=== PATIENT | male | born 1940 | race Caucasian/White ===

== ENCOUNTER 2016-06-20 18:38 | Inpatient (IN) | payer MEDICARE, OTHER ==
--- NOTE | ~2016-06-20 | EKG ---
PATIENT: SAGRARIO NATHAN UNIT #: [id number] Ventricular Rate: 60 BPM Atrial Rate: 227 BPM QRS Duration: 176 ms Q-T Interval: 470 ms QTC Calculation(Bezet): 470 ms Calculated R [place]: 5 degrees Calculated T [place]: 120 degrees Diagnosis Line: Atrial flutter Diagnosis Line: Ventricular-paced rhythm Diagnosis Line: Abnormal ECG Diagnosis Line: When compared with ECG of 03-NOV-2014 19:41, Diagnosis Line: Electronic ventricular pacemaker has replaced Diagnosis Line: Atrial flutter Diagnosis Line: Confirmed by EMA PLASENCIA MD ([id number]) on 06/21/2016 Diagnosis Line: 9:19:05 PM INTERPRETING MD: LUIS ANGEL QUIROZ
--- NOTE | ~2016-06-20 | DS ---
Unit #: [id number] #: [id number] Patient: SAGRARIO NATHAN [id number] [address] [address] [id number] I MR#: [id number] NAME: SAGRARIO NATHAN. ROOM: 342 Age: 76 Sex: M Admission Date: 06/20/2016 : 1940 Discharge Date: 06/23/2016 Attending Physician: Rama Barba M.D. Primary Care Physician: Brandyn Angela M.D. DISCHARGE SUMMARY DISCHARGE DIAGNOSES 1. Acute on chronic systolic/diastolic heart failure. 2. A 2-D echocardiogram, 06/21/2016, shows an ejection fraction of 30% with grade 3 diastolic dysfunction with restrictive physiology. There is moderate generalized hypokinesis of the left ventricle. Mild tricuspid regurgitation with right ventricular systolic pressure of less than 30 mmHg. 3. Persistent atrial flutter. 4. Sick sinus syndrome status post permanent pacemaker in 2009. 5. History of coronary artery disease with percutaneous coronary intervention and stent to the circumflex artery, patent 10/30/2014. 6. Hypertension. 7. Hyperlipidemia. 8. Diabetes mellitus type 2. 9. Chronic obstructive pulmonary disease. 10. Dementia. 11. Anemia. 12. Subtherapeutic International Normalized Ratio. DISCHARGE MEDICATIONS 1. Warfarin 5 mg Sunday thru Sunday and 10 mg on Sunday and Sunday. 2. Lexapro 10 mg q.h.s. 3. Metformin 1,000 mg b.i.d. 4. Metoprolol tartrate 25 mg b.i.d. 5. Aricept 10 mg daily. 6. Furosemide 40 mg daily. 7. Atorvastatin 40 mg q.h.s. 8. Lisinopril 10 mg q.h.s. 9. Proscar 5 mg daily. 10. Nexium 40 mg daily. 11. Potassium chloride 20 mEq daily. HOSPITAL COURSE This is a 76-year-old male who was admitted for acute on chronic systolic/diastolic heart failure. He presented with shortness of breath and cough. Saturation levels were 81%. There was elevation of BNP of 218 with chest x-ray noted for pulmonary edema. He was diuresed with IV diuretics. He was started on fluid and sodium restriction. Overnight, oximetry was done. His dyspnea improved. Lasix was transitioned to oral. Telemetry showed atrial flutter. Rate was controlled. He was ruled out for an acute myocardial infarction with negative troponins. INR is subtherapeutic at 1.5 for which he received an increased dose of Coumadin during his stay. Unit #: [id number] #: [id number] Patient: SAGRARIO NATHAN The following day the patient symptomatically improved. He had no recurrence of dyspnea. He was on Tikosyn prior to his admission which was discontinued because the patient has established atrial fibrillation. His heart rate remained stable. He is stable for discharge today. PHYSICAL EXAMINATION VITAL SIGNS: Blood pressure 137/73. Heart rate 71. Temperature 98.1. CHEST: Clear to auscultation. HEART: S1, S2 with no murmurs, rubs or clicks. Irregularly, irregular rhythm. ABDOMEN: Soft, nontender. Good bowel sounds are present. EXTREMITIES: Without leg edema. DIAGNOSTIC STUDIES LABORATORY: Sodium 135, potassium 3.5, BUN 27, creatinine 1.1, glucose 151. TSH 1.24. Cholesterol 98, triglycerides 75, LDL 55, HDL 28. Protime 15.1, INR 1.4. CARDIOVASCULAR: EKG shows ventricularly paced rhythm with atrial flutter, underlying rate of 60 beats per minute. DISCHARGE INSTRUCTIONS 1. The patient will be discharged home today. 2. Followup in three months. The patient's is to call for an appointment. 3. The patient will be discharged home on Furosemide along with a potassium supplement. 4. Coumadin has been increased to 5 mg Sunday through Sunday and 10 mg on Sunday and Sunday. 5. He will need a repeat INR in the office in one week. 6. Tikosyn has been discontinued because the patient is in atrial flutter. 7. No other changes in his medication regimen. Dictated by... Michael Moise A.P.R.N. for Dylon Reid TD: 07/21/2016 09:22 JOB #: [id number] DISCHARGE SUMMARY Page 1 of 1 X Michael Moise APRN X DISCHARGE SUMMARY
--- NOTE | ~2016-06-20 | CR72 ---
[facility] A Service of [facility] & [facility] RADIOLOGY TEXT RESULTS PATIENT: SAGRARIO NATHAN LOCATION: [facility] - : 41 UNIT #: [id number] AGE: [address]: Rama Barba MD SEX: M ORDER DR: [id number] [facility] [address]. [place], [place] [address] [id number] I MR#: [id number] Acc #: [id number] NAME: SAGRARIO NATHAN. : 1940 SEX: M STUDY DATE/TIME: 06/20/2016 18:30 UNIT: [address] ROOM: Critical access hospital STUDY DESCRIPTION: CR Chest Single View Portable Attending Physician: Andie Bolaños M.D. Ordering Physician: Devan Lam M.D. Primary Care Physician: Brandyn Angela M.D. MEDICAL IMAGING REPORT This report is preliminary unless electronic signature is present EXAM Portable AP view of the chest, 06/20/2016 COMPARISON March 29, 2016; November 03, 2014 and October 26, 2014 INDICATION 76-year-old male with dyspnea, cough and wheezing for 3 days. FINDINGS Dual-lead left chest pacemaker device appears stable. There is stable mild cardiomegaly. Stable left apical pleural parenchymal thickening. There is increasing cephalization of pulmonary vasculature with increasing interstitial opacities in both lung bases becoming more confluent in the right lung base suggesting pulmonary edema. Correlation to exclude signs of infection are recommended. No evidence of pneumothorax or pleural effusion. Diffuse mild spondylosis of the thoracic spine. Mild degenerative changes of the acromioclavicular joints. Calcification of the aortic arch. IMPRESSION Increasing bilateral lung opacities favoring pulmonary edema. Stable cardiomegaly. No pleural effusion. Correlation to exclude signs of pneumonia are recommended. Dictated by... Cheng Colón M.D. THIS IS AN ELECTRONICALLY VERIFIED REPORT Cheng Colón M.D. at 06/23/2016 9:37 AM ZULMA/isaac [facility] A Service of [facility] & [facility] RADIOLOGY TEXT RESULTS PATIENT: SAGRARIO NATHAN LOCATION: [place] [id number] : [birth year] UNIT #: [id number] AGE: [address]: Rama Barba MD SEX: M ORDER DR: TD: 06/21/2016 00:07 JOB #: [id number] MEDICAL IMAGING REPORT Page 1 of 1 COPY
--- NOTE | ~2016-06-20 | HP ---
Unit #: [id number] #: [id number] Patient: SAGRARIO BLACKBURN [id number] [facility]. [place], [place] [address] [id number] I MR#: [id number] NAME: SAGRARIO BLACKBURN. ROOM: 342 Age: 76 Sex: M Admission Date: 06/20/2016 : 1940 Attending Physician: Andie Bolaños M.D. Primary Care Physician: Brandyn Angela M.D. HISTORY AND PHYSICAL CHIEF COMPLAINT Dyspnea. HISTORY OF PRESENT ILLNESS Mr. Blackburn is a pleasant 76-year-old seen in room 342 at [facility] with his present. During the day today he underwent an echo which showed TR, for his heart murmur. He was admitted with pulmonary edema to the emergency room, with cough, hypoxemia down to oxygen saturation of 81% and significant shortness of breath that came on within the past 2 days. He has a history of atrial flutter and, upon admission, was in atrial flutter rhythm, with left bundle branch block, and ventricular pacing, left bundle branch block configuration. He continues to be paced with atrial flutter present. Prior cardiac catheterization, by Dr. Barba on 10/25/2014, showed 40% LAD, 30% RCA, ejection fraction 40% to 45%, left ventricular end-diastolic pressure 34 mmHg, circumflex stenting present, and permanent pacemaker implantation. There was moderate pulmonary hypertension with RV systolic pressure of 48 mmHg. He has a history of atrial flutter, type 2 diabetes, respiratory failure with COPD, and pulmonary hypertension. Last admission was 12/17/2014. PAST MEDICAL HISTORY 1. Atrial flutter. 2. Diabetes. 3. COPD with respiratory failure. 4. Coumadin toxicity. 5. EF 40% to 45%. 6. Pulmonary hypertension. 7. Coronary artery disease with circumflex stenting. 8. Cannot rule out sleep disordered breathing. 9. Alzheimer's. PAST SURGICAL HISTORY 1. Back surgery. 2. Pacemaker placement. 3. Carotid surgery. 4. Ablation of atrial flutter, AV node. HOME MEDICATIONS 1. Lisinopril. 2. Metoprolol. 3. Tamsulosin. Unit #: [id number] #: [id number] Patient: SAGRARIO BLACKBURN 4. Finasteride. 5. Metformin. 6. Lasix. 7. Lipitor. 8. Lexapro. 9. Nexium. 10. Warfarin. 11. Namenda. ALLERGIES None. SOCIAL HISTORY Lives with his . FAMILY HISTORY Not obtainable. REVIEW OF SYSTEMS Cannot obtain accurate review of systems due to Alzheimer's. PHYSICAL EXAMINATION VITAL SIGNS: Blood pressure 146/80, heart rate 71 and regular, respiratory rate 20. Height 6 feet 0 inches, weight 198 pounds, BMI 26. Weight is down 2 pounds since yesterday. GENERAL: Pleasant, alert, in no acute distress. SKIN: Warm and dry. No xanthelasma. MUSCULOSKELETAL: No missing digits. Moves easily for evaluation. NEUROLOGICAL: Appropriate mood and affect. Not well oriented to person or place. HEENT: Pupils equal, round and reactive. No oral cyanosis. No icterus. NECK: Carotids clear to auscultation with no carotid bruits. Normal carotid upstroke bilaterally. Thyroid is normal in size and texture without masses or tenderness. CHEST: Clear to auscultation with a few inspiratory and expiratory wheezes. Few rales at the base. CARDIAC: Grade 2/6 aortic outflow murmur and a grade 2/6 mitral regurgitation murmur. Paradoxic S2 split. ABDOMEN: Mildly firm abdomen. No hepatosplenomegaly, masses or tenderness. Normal bowel sounds. No abdominal bruits heard. EXTREMITIES: No clubbing, cyanosis or edema. Excellent posterior tibial and dorsalis pedis pulses. DIAGNOSTIC STUDIES LABORATORY: Creatinine 1.2, glucose 150, potassium 3.7. Hemoglobin 9.5, white blood cell count 8.4, platelet count 330,000. CARDIOVASCULAR: I reviewed the ECG as noted above, paced rhythm with atrial flutter. IMPRESSION 1. [id number] diastolic congestive heart failure with right ventricular component, holding fluid in his abdomen and lungs. Continue diuresis. 2. Permanent pacemaker placement. 3. Carotid surgery. 4. Circumflex stent in the past. 5. Pulmonary hypertension. Unit #: [id number] #: [id number] Patient: SAGRARIO BLACKBURN 6. Ejection fraction 40% to 45% in the past. 7. History of Coumadin toxicity, will monitor here. 8. History of chronic obstructive pulmonary disease with respiratory failure. 9. Type 2 diabetes. 10. History of atrial flutter with ablation. PLAN 1. Continue diuresis at least another day. 2. Check thyroid, lipids, hemoglobin A1c, etc. Dictated by Dylon El/shilpa TD: 06/21/2016 20:24 JOB #: [id number] HISTORY AND PHYSICAL Page 1 of 1 X Koffi Quinones MD X HISTORY AND PHYSICAL
[~2016-06-20 18:38] MED LIST: ARICEPT5 MG PO; ASPIRIN EC81 M1 PO; BYSTOLIC5 MG PO; LANTUS100 U/ML SQ; LASIX PO; LEXAPRO5 MG PO; NEXIUM 24HR20 MG PO; NORVASC10 MG PO; PREDNISONE PO; PROAIR HFA8.5 GM; SYMBICORT INH; TEMAZEPAM7.5 MG PO; TIKOSYN250 MCG PO; ZITHROMAX PO
[2016-06-20 18:49] LABS: BASOPHIL# 0.1 X10e3 (0-0.3); BASOPHIL% 1.3 % (0-2.5); EOSINOPHIL# 0.4 X10e3 (0-0.7); EOSINOPHIL% 4.4 % (0.0-7.0); HEMATOCRIT 30.8 % (38.0-50.0); HEMOGLOBIN 9.5 gm/dL (13.0-16.0); LYMPHOCYTE# 1.1 X10e3 (1.0-3.5); LYMPHOCYTE% 13.3 % (17.0-45.0); MEAN CELL VOLUME 75.2 FL (83-96); MEAN CORPUSCULAR HEMOGLOBIN 23.3 PG (28-34); MEAN CORPUSCULAR HGB CONC 30.9 g/dL (30-36); MONOCYTE# 0.7 X10e3 (0-1.0); MONOCYTE% 8.9 % (3.0-12.0); NEUTROPHIL% 72.1 % (40-75); PLATELET COUNT 330 X10e3 (140-420); RED BLOOD COUNT 4.09 X10e (3.90-5.60); RED CELL DISTRIBUTION WIDTH 18.1 % (11.0-15.5); WHITE BLOOD COUNT 8.4 X10e3 (4.0-10.5)
[2016-06-20 18:53] LABS: DIFF IND NO
[2016-06-20 19:04] LABS: POC - TROPONIN <0.05 ng/mL (<=0.05)
[2016-06-20 19:11] LABS: ALBUMIN SERUM 3.7 g/dL (3.5-5.0); BILIRUBIN, DIRECT 0.2 mg/dL (0.0-0.2); BILIRUBIN,INDIRECT 0.6 mg/dL (0.0-0.9); BILIRUBIN,TOTAL 0.8 mg/dL (0.2-2.0); BUN/CREATININE RATIO 18.33; CALCIUM SERUM 9.2 mg/dL (8.4-10.2); CREATININE SERUM 1.2 mg/dL (0.6-1.4); GLOM FILT RATE Estimated 58.8 mL/min (>60); POTASSIUM 3.7 mmol/L (3.5-5.1); PROTEIN TOTAL SERUM 6.6 g/dL (6.0-8.3)
[2016-06-20 19:13] LABS: INR 2.6; PROTHROMBIN TIME (PATIENT) 28.6 SECONDS (9.6-11.5)
[2016-06-20] MEDS ORDERED: LASIX PO (19:50)
[2016-06-20] MEDS ORDERED: LIPITOR40 MG PO (19:51)
[2016-06-20 20:17] LABS: POC - CKMB <1.0 ng/mL (0.0-7.9); POC - TROPONIN <0.05 ng/mL (<=0.05)
[2016-06-21 07:29] LABS: PROTHROMBIN TIME (PATIENT) 21.6 SECONDS (9.6-11.5)
[2016-06-21 20:43] LABS: CALCIUM SERUM 9.3 mg/dL (8.4-10.2); GLOM FILT RATE Estimated 73.3 mL/min (>60); MAGNESIUM 1.9 mg/dL (1.6-3.0); POTASSIUM 3.9 mmol/L (3.5-5.1)
[2016-06-21 22:33] LABS: URINE APPEARANCE CLEAR; URINE BILIRUBIN NEG (NEG); URINE BLOOD NEG (NEG); URINE COLOR YELLOW; URINE GLUCOSE 500 MG/DL (NEG); URINE KETONE NEG (NEG); URINE LEUKOCYTE ESTERASE NEG (NEG); URINE NITRATE NEG (NEG); URINE PH 5.5 (5-8); URINE PROTEIN NEG (NEG); URINE SPECIFIC GRAVITY 1.023 (1.003-1.035)
[2016-06-21 22:42] LABS: CULTURE INDICATED? NO
[2016-06-22 06:52] LABS: INR 1.5; PROTHROMBIN TIME (PATIENT) 16.1 SECONDS (9.6-11.5)
[2016-06-22 07:18] LABS: BUN/CREATININE RATIO 23.33; CALCIUM SERUM 9.4 mg/dL (8.4-10.2); CREATININE SERUM 0.9 mg/dL (0.6-1.4); GLOM FILT RATE Estimated 83.3 mL/min (>60); MAGNESIUM 1.9 mg/dL (1.6-3.0); POTASSIUM 3.7 mmol/L (3.5-5.1)
[2016-06-23 07:06] LABS: HEMATOCRIT 33.5 % (38.0-50.0); HEMOGLOBIN 10.4 gm/dL (13.0-16.0); MEAN CELL VOLUME 74.4 FL (83-96); MEAN CORPUSCULAR HEMOGLOBIN 23.2 PG (28-34); MEAN CORPUSCULAR HGB CONC 31.1 g/dL (30-36); RED BLOOD COUNT 4.5 X10e (3.90-5.60); RED CELL DISTRIBUTION WIDTH 18.1 % (11.0-15.5); WHITE BLOOD COUNT 12.7 X10e3 (4.0-10.5)
[2016-06-23 07:17] LABS: INR 1.4; PROTHROMBIN TIME (PATIENT) 15.4 SECONDS (9.6-11.5)
[2016-06-23] MEDS ORDERED: COUMADIN10 MG PO (07:41)
[2016-06-23 08:01] LABS: BUN/CREATININE RATIO 24.54; CALCIUM SERUM 9.4 mg/dL (8.4-10.2); CREATININE SERUM 1.1 mg/dL (0.6-1.4); GLOM FILT RATE Estimated 65.3 mL/min (>60); MAGNESIUM 2.1 mg/dL (1.6-3.0); POTASSIUM 3.5 mmol/L (3.5-5.1)
== END 2016-06-23 08:57 | disposition home health service (06) | DRG 292 ==
LOC: CED 18:38 → CEDOF 20:00 → C3A PCU 23:54
PROVIDERS: Emergency Medicine; Internal Medicine Cardiovascular Disease
PROC: B246YZZ Ultrasonography of Right and Left Heart using Other Contrast (ICD-10-PCS; principal; 2016-06-21)
DX: I50.23 Acute on chronic systolic (congestive) heart failure (principal); I48.92 Unspecified atrial flutter; I27.2 Other secondary pulmonary hypertension; G30.9 Alzheimer's disease, unspecified; F02.80 Dementia in other diseases classified elsewhere, unspecified severity, without behavioral disturbance, psychotic disturbance, mood disturbance, and anxiety; J44.9 Chronic obstructive pulmonary disease, unspecified; E11.9 Type 2 diabetes mellitus without complications; E78.5 Hyperlipidemia, unspecified; I25.10 Atherosclerotic heart disease of native coronary artery without angina pectoris; Z95.5 Presence of coronary angioplasty implant and graft; Z95.0 Presence of cardiac pacemaker
CPT/HCPCS: 36415; 71010; 80048; 80061; 80076; 81003; 82553; 83036; 83605; 83735; 83880; 84443; 84484; 85025; 85027; 85610; 87040; 87086; 93005; 93306; 94760; 94762; 99291; J1940

== ENCOUNTER → 2016-07-04 | Outpatient (CLI) | payer MEDICARE, OTHER ==
[~2016-07-04] MED LIST changes: +CENTRUM SILVER1 EACH PO; +COUMADIN10 MG PO; +COUMADIN5 MG PO; +COUMADIN7.5 MG PO; +DOCUSATE SODIU100 MG PO; +FINASTERIDE5 MG PO; +FLOMAX0.4 M1 PO; +FUROSEMIDE40 MG PO; +KCL PO; +KEFLEX500 MG PO; +LASIX20 MG PO; +LEXAPRO20 MG PO; +LIPITOR40 MG PO; +LOPRESSOR PO; +METFORMIN HCL1000 M1 PO; +NAMENDA5 MG PO; +ZESTRIL10 M1 PO
[2016-07-04 14:53] LABS: HEMATOCRIT 32.3 % (38.0-50.0); HEMOGLOBIN 9.9 gm/dL (13.0-16.0); MEAN CELL VOLUME 73.8 FL (83-96); MEAN CORPUSCULAR HEMOGLOBIN 22.7 PG (28-34); MEAN CORPUSCULAR HGB CONC 30.7 g/dL (30-36); MEAN PLATELET VOLUME 7.2 FL (6.5-11.5); RED BLOOD COUNT 4.38 X10e (3.90-5.60); RED CELL DISTRIBUTION WIDTH 17.8 % (11.0-15.5)
[2016-07-04 15:21] LABS: BUN/CREATININE RATIO 20.9; CALCIUM SERUM 9.5 mg/dL (8.4-10.2); CREATININE SERUM 1.1 mg/dL (0.6-1.4); GLOM FILT RATE Estimated 65.3 mL/min (>60); POTASSIUM 4.7 mmol/L (3.5-5.1)
== END | disposition home or self-care (01) ==
LOC: CAMB 13:03
PROVIDERS: Urology
DX: N39.41 Urge incontinence (principal)
CPT/HCPCS: 36415; 80048; 85027

== ENCOUNTER 2016-07-14 06:07 | Observation (INO) | payer MEDICARE, OTHER ==
--- NOTE | ~2016-07-14 | OR ---
Unit #: [id number] #: [id number] Patient: SAGRARIO NATHAN [id number] [address] [place], [place] [address] [id number] I MR#: [id number] NAME: SAGRARIO NATHAN. ROOM: 463 Date of Procedure: 07/14/2016 Admission Date: 07/14/2016 Surgeon: Keith Becker M.D. : 1940 Attending Physician: Keith Becker M.D. Primary Care Physician: Brandyn Angela M.D. OPERATIVE REPORT PREOPERATIVE DIAGNOSIS Bladder outlet obstruction from benign prostatic hypertrophy. POSTOPERATIVE DIAGNOSIS Bladder outlet obstruction from benign prostatic hypertrophy. PROCEDURES PERFORMED Cystoscopy with transurethral resection of prostate. ANESTHESIA General. INDICATIONS FOR PROCEDURE This 76-year-old man has severe lower urinary tract symptoms. Cystoscopically proven bilobar BPH and urodynamically proven severe bladder outlet obstruction as well as detrusor instability and urge incontinence. He presents for the above procedure. DESCRIPTION OF PROCEDURE The patient was given satisfactory general anesthesia and positioned in dorsal lithotomy. The genitalia were prepped and draped. The 21-Lithuanian rigid cystoscope was introduced with a 30-degree lens and video noting again bilobar BPH, orifices well back from the bladder neck and only moderate hypertrophy. He was sounded to 28-Lithuanian and gently dilated to 30 to allow easy placement of the 26-Lithuanian continuous flow resectoscope, which was used unfortunately with a 24 loop as a 26 was not available. The bladder neck was incised at 6 o'clock. Then, the left lobe was taken down proximally to distal. The right lobe was taken down, and limited anterior resection performed. Hemostasis was very straightforward. Final aggressive trimming the capsule at the apex released a number of large prostate calculi. All stones and chips were evacuated from the bladder. Then the rollerball applied circumferentially at the bladder neck mucosa distally at the mucosal edges and at 5 and 7 o'clock. There was some mild venous oozing from the left side that was not readily amenable to fulguration, otherwise hemostasis was complete. A 24-Lithuanian catheter was requested and required a guide, which unfortunately took 10 minutes to locate. Endoscopy was not repeated, but the guide was successful placing the catheter in the bladder, which was aggressively irrigated and finding no clot after inflating the balloon to 30 mL. Returns remained clear and the patient was transported to the recovery room in satisfactory condition. Unit #: [id number] #: [id number] Patient: SAGRARIO NATHAN Dictated by... Dylon Back/dawn TD: 07/15/2016 01:52 JOB #: [id number] OPERATIVE REPORT Page 1 of 1 X Keith Becker MD X PROCEDURE OPERATIVE NOTE
[~2016-07-14 06:07] MED LIST changes: -CENTRUM SILVER1 EACH PO; -COUMADIN5 MG PO; -COUMADIN7.5 MG PO; -DOCUSATE SODIU100 MG PO; -FINASTERIDE5 MG PO; -FLOMAX0.4 M1 PO; -FUROSEMIDE40 MG PO; -KCL PO; -KEFLEX500 MG PO; -LASIX20 MG PO; -LEXAPRO20 MG PO; -LOPRESSOR PO; -METFORMIN HCL1000 M1 PO; -NAMENDA5 MG PO; -ZESTRIL10 M1 PO
[2016-07-14] MEDS ORDERED: LIPITOR40 MG PO (06:32)
[2016-07-14] MEDS ORDERED: FUROSEMIDE40 MG PO (06:32)
[2016-07-14] MEDS ORDERED: LASIX20 MG PO (06:32)
[2016-07-14 06:51] LABS: BASOPHIL% 0.2 % (0-2.5); EOSINOPHIL# 0.4 X10e3 (0-0.7); EOSINOPHIL% 3.4 % (0.0-7.0); HEMATOCRIT 33.1 % (38.0-50.0); HEMOGLOBIN 10.1 gm/dL (13.0-16.0); INR 1.2; LYMPHOCYTE# 1.5 X10e3 (1.0-3.5); LYMPHOCYTE% 12.3 % (17.0-45.0); MEAN CELL VOLUME 73.1 FL (83-96); MEAN CORPUSCULAR HEMOGLOBIN 22.3 PG (28-34); MEAN CORPUSCULAR HGB CONC 30.5 g/dL (30-36); MEAN PLATELET VOLUME 7.3 FL (6.5-11.5); MONOCYTE# 0.9 X10e3 (0-1.0); MONOCYTE% 7.7 % (3.0-12.0); NEUTROPHIL# 9.3 X10e3 (1.5-7.1); NEUTROPHIL% 76.4 % (40-75); PLATELET COUNT 323 X10e3 (140-420); PROTHROMBIN TIME (PATIENT) 12.5 SECONDS (9.6-11.5); RED BLOOD COUNT 4.52 X10e (3.90-5.60); RED CELL DISTRIBUTION WIDTH 17.9 % (11.0-15.5); WHITE BLOOD COUNT 12.1 X10e3 (4.0-10.5)
[2016-07-14 06:54] LABS: DIFF IND NO
[2016-07-14] MEDS ORDERED: KCL PO (07:42)
[2016-07-14] MEDS ORDERED: FLOMAX0.4 M1 PO (13:47)
[2016-07-14] MEDS ORDERED: CENTRUM SILVER1 EACH PO (13:48)
[2016-07-14] MEDS ORDERED: NAMENDA5 MG PO (13:48)
[2016-07-14] MEDS ORDERED: COUMADIN5 MG PO (15:18)
[2016-07-14] MEDS ORDERED: LOPRESSOR PO (15:42)
[2016-07-14] MEDS ORDERED: ZESTRIL10 M1 PO (15:43)
[2016-07-14] MEDS ORDERED: FINASTERIDE5 MG PO (17:11)
[2016-07-14] MEDS ORDERED: METFORMIN HCL1000 M1 PO (17:13)
[2016-07-14] MEDS ORDERED: COUMADIN7.5 MG PO (17:20)
[2016-07-14] MEDS ORDERED: LEXAPRO20 MG PO (19:56)
[2016-07-15 03:47] LABS: BASOPHIL# 0.1 X10e3 (0-0.3); BASOPHIL% 0.8 % (0-2.5); DIFF IND NO; EOSINOPHIL# 0.3 X10e3 (0-0.7); EOSINOPHIL% 2.7 % (0.0-7.0); HEMATOCRIT 28.1 % (38.0-50.0); HEMOGLOBIN 8.4 gm/dL (13.0-16.0); LYMPHOCYTE# 1.1 X10e3 (1.0-3.5); LYMPHOCYTE% 9.5 % (17.0-45.0); MEAN CELL VOLUME 73.6 FL (83-96); MEAN CORPUSCULAR HGB CONC 29.9 g/dL (30-36); MEAN PLATELET VOLUME 7.2 FL (6.5-11.5); MONOCYTE% 8.9 % (3.0-12.0); NEUTROPHIL# 9.1 X10e3 (1.5-7.1); NEUTROPHIL% 78.1 % (40-75); PLATELET COUNT 291 X10e3 (140-420); RED BLOOD COUNT 3.81 X10e (3.90-5.60); RED CELL DISTRIBUTION WIDTH 18.2 % (11.0-15.5); WHITE BLOOD COUNT 11.7 X10e3 (4.0-10.5)
[2016-07-15 04:14] LABS: CALCIUM SERUM 9.2 mg/dL (8.4-10.2); CREATININE SERUM 1.3 mg/dL (0.6-1.4); GLOM FILT RATE Estimated 53.4 mL/min (>60); POTASSIUM 4.5 mmol/L (3.5-5.1)
[2016-07-15] MEDS ORDERED: KEFLEX500 MG PO (11:40)
[2016-07-15] MEDS ORDERED: DOCUSATE SODIU100 MG PO (11:40)
== END 2016-07-15 12:52 | disposition home or self-care (01) ==
LOC: CSUR 06:07 → CPACUOF 09:35 → C4C 13:08
PROVIDERS: Urology
PROC: 0VB08ZZ Excision of Prostate, Via Natural or Artificial Opening Endoscopic (ICD-10-PCS; principal; 2016-07-14 07:30)
DX: N40.1 Benign prostatic hyperplasia with lower urinary tract symptoms (principal); N13.8 Other obstructive and reflux uropathy; N42.0 Calculus of prostate; N39.41 Urge incontinence; J44.9 Chronic obstructive pulmonary disease, unspecified; K21.9 Gastro-esophageal reflux disease without esophagitis; I25.10 Atherosclerotic heart disease of native coronary artery without angina pectoris; I49.9 Cardiac arrhythmia, unspecified; E11.9 Type 2 diabetes mellitus without complications; Z79.84 Long term (current) use of oral hypoglycemic drugs; G30.0 Alzheimer's disease with early onset; F02.80 Dementia in other diseases classified elsewhere, unspecified severity, without behavioral disturbance, psychotic disturbance, mood disturbance, and anxiety; F17.200 Nicotine dependence, unspecified, uncomplicated; Z79.899 Other long term (current) drug therapy; Z79.01 Long term (current) use of anticoagulants; Z87.01 Personal history of pneumonia (recurrent); Z98.890 Other specified postprocedural states; Z95.0 Presence of cardiac pacemaker
CPT/HCPCS: 80048; 82947; 85025; 85610; 88305; 94640; 94760; 96374; 96376; G0378; J0690; J2370; J2405; J3010